=== PATIENT | female | born 1980 | race Caucasian/White ===

== ENCOUNTER 2016-04-17 15:40 | Emergency (ER) | payer OTHER ==
--- NOTE | 2016-04-17 16:45 | RAD ---
INDICATION: Short of breath COMPARISON: None TECHNIQUE: PA and lateral views were obtained. FINDINGS: Bones/Soft Tissues: There are no acute bony findings. Cardiomediastinal: The cardiomediastinal silhouette is normal. Lungs: There are no infiltrates. Pleura: There are no pleural effusions. Other: None IMPRESSION: NORMAL CHEST.
[2016-04-17] MEDS ORDERED: Morphine INJ* 4 MG/ML 1 ML SYRINGE IV ONE (18:42)
[2016-04-17] MEDS ORDERED: Ondansetron INJ* 2 MG/ML VIAL IV ONE (18:42)
[2016-04-17 19:05] LABS: Hematocrit 39 % (35-47); Hemoglobin 13.4 g/dl (12.0-16.0); Mean Corpuscular HGB Conc 34 g/dl (31-36); Mean Corpuscular Hemoglobin 31 pg (27-31); Mean Corpuscular Volume 89 fL (80-97); Mean Platelet Volume 10 um3 (7.4-10.4); Red Blood Count 4.41 10^6/ul (4.0-5.4); Red Cell Distribution Width 13 % (10.5-15); White Blood Count 13.8 10^3/ul (3.5-10.8)
[2016-04-17 19:16] LABS: Albumin 4.3 g/dL (3.2-5.2); BUN/Creatinine Ratio 15.8 (8-20); Calcium 10.4 mg/dL (8.6-10.3); EGFR African American 111.4 (>60); EGFR Non-African American 86.6 (>60); Globulin 2.6 g/dL (2-4); Potassium 3.6 mmol/L (3.5-5.0); Total Bilirubin 0.9 mg/dL (0.2-1.0); Total Protein 6.9 g/dL (6.4-8.9)
[2016-04-17 19:17] LABS: Troponin I 0.03 ng/mL (<0.04)
[2016-04-17] MEDS ORDERED: Iohexol 350* (CONTRAST) 500 ML MDV IV ONE (19:35)
--- NOTE | 2016-04-17 20:14 | RAD ---
INDICATION: Pain and swelling. COMPARISON: None TECHNIQUE: Duplex interrogation of the Lowerextremity was performed. FINDINGS: Deep veins: The common femoral, great saphenous, profunda femoris, proximal, mid, and distal deep femoral, popliteal, posterior tibial, and peroneal veins are patent. There is a recanalized mid to distal femoral vein consistent with chronic thrombosis. There is otherwise normal compressibility, augmentation, and phasic flow. Superficial veins: There are no findings of superficial thrombophlebitis. Popliteal fossa:There is no evidence of a popliteal cyst. Soft tissues:There are no soft tissue abnormalities. IMPRESSION: NO EVIDENCE OF ACUTE DEEP VENOUS THROMBOSIS. RECANALIZED MID AND DISTAL DEEP FEMORAL VEIN, UNCHANGED.
[2016-04-17 20:31] VITALS: BP 114/67
--- NOTE | 2016-04-17 20:55 | RAD ---
INDICATION: Chest pain. Short of breath. Evaluate for pulmonary embolus. COMPARISON: Chest x-ray April 17, 2016 TECHNIQUE: Axial source images were obtained from the thoracic inlet to the hemidiaphragms following administration of [address] angiographic technique was utilized. Coronal and sagittal reconstructed images were acquired. CHEST FINDINGS: Neck/thyroid: The visualized neck to include the thyroid appear normal. Chest wall: There are no acute abnormalities of the bony thorax or chest wall. There is no supraclavicular, infraclavicular, or axillary lymphadenopathy. Lungs : There are no pulmonary parenchymal masses or infiltrates. The pulmonary interstitium appears normal. There are no endobronchial lesions. Cardiomediastinal structures: There is no CT evidence of acute pulmonary embolic disease. The heart is normal in size. There is no pericardial effusion. There is no evidence of aortic aneurysm or dissection. There is no mediastinal or hilar adenopathy. The esophagus appears normal. Pleura : There are no pleural-based masses or effusions. Other: None. IMPRESSION: NO CT EVIDENCE OF ACUTE PULMONARY EMBOLIC DISEASE. LUNGS CLEAR
--- NOTE | 2016-05-02 17:42 | ED ---
Shayy Kidd Michael, scribed for Margarito Newton MD on 04/17/16 at 1757 . Shortness of Breath - HPI Summary HPI Summary: 35 y/o female comes to the ED presenting with SOB that started this afternoon. The pt reports that she was unable to catch her breath. Currently at the ED, the SOB has improved. She presents left knee pain that stared immediately one week ago after hearing a "pop" in her knee. The pt went to Urgent Care and was prescribed Prednisone. Then, she visited an Orthopedic yesterday and scheduled an MRI of her left knee. The pt also c/o left calf swelling, dizziness, weakness , and diaphoresis. She denies fever and chills. 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 - History of Current Complaint Chief Complaint: EDShortnessOfBreath Time Seen by Provider: 04/17/16 16:13 Hx Obtained From: Patient, Medical Records Onset/Duration: Sudden Onset, Lasting Hours, Resolved Timing: Constant Current Severity: Moderate Dyspnea At: Rest Aggrevating Factors: Nothing Alleviating Factors: Spontaneous Resolution Associated Signs & Symptoms: Negative - fever and chills, Diaphoresis, Dizzy, Calf Pain/Swelling - and left knee pain. weakness. - Allergy/Home Medications Allergies/Adverse Reactions: Allergies Allergy/AdvReac Type Severity Reaction Status Date / Time Aspirin Allergy Bleeding Verified 07/01/15 17:22 Home Medications: Home Medications predniSONE TAB* [Deltasone TAB*] 20 mg PO BID 04/17/16 [History Confirmed ] PMH/Surg Hx/FS Hx/Imm Hx Cardiovascular History: Reports: Hx Deep Vein Thrombosis Infectious Disease History: Yes Infectious Disease History: Denies: Traveled Outside the [place] in Last 30 Days - Family History Known Family History: Positive: None Family History: pt denies a significant FHx - Social History Occupation: Employed Full-time Lives: With Family Alcohol Use: None Substance Use Type: Reports: None Smoking Status (MU): Light Every Day Tobacco Smoker Review of Systems Positive: Skin Diaphoresis. Negative: Fever, Chills Negative: Erythema Negative: Sore Throat Negative: Chest Pain Positive: Shortness Of Breath. Negative: Cough Negative: Abdominal Pain, Vomiting, Nausea Negative: dysuria, hematuria Positive: Edema - left calf, Other - left knee pain. Negative: Rash Neurological: Other - dizziness Positive: Weakness All Other Systems Reviewed And Are Negative: Yes Physical Exam - Summary Physical Exam Summary: Constitutional: Well-developed, Well-nourished, Alert. (-) Distressed Skin: Warm, Dry HENT: Normocephalic; Atraumatic Eyes: Conjunctiva normal Neck: Musculoskeletal ROM normal neck. (-) JVD, (-) Stridor, (-) Tracheal deviation Cardio: Rhythm regular, rate normal, Heart sounds normal; Intact distal pulses; The pedal pulses are 2+ and symmetric. Radial pulses are 2+ and symmetric. ~(-) Murmur Pulmonary/Chest wall: Effort normal. (-) Respiratory distress, (-) Wheezes, (-) Rales Abd: Soft, (-) Tenderness, ~(-) Distension, (-) Guarding, (-) Rebound Musculoskeletal: (-) Edema. Left calf is tender and warm to the touch. Lymph: (-) Cervical adenopathy Neuro: Alert, Oriented x3 Psych: Mood and affect Normal Triage Information Reviewed: Yes Vital Signs On Initial Exam: Initial Vitals Temp Pulse Resp BP Pulse Ox 99.2 F 62 20 111/75 100 04/17/16 15:46 04/17/16 15:46 04/17/16 15:46 04/17/16 15:46 04/17/16 15:46 Vital Signs Reviewed: Yes - [place] Coma Scale Coma Scale Total: 15 Diagnostics - Vital Signs Vital Signs Temp Pulse Resp BP Pulse Ox 04/17/16 15:46 99.2 F 62 20 111/75 100 - Laboratory Lab Results: Lab Results 04/17/16 Range/Units 17:00 D-Dimer, Quantitative < 200 (Less Than 230) ng/mL Result Diagrams: 04/17/16 17:00 04/17/16 17:00 Lab Statement: Any lab studies that have been ordered have been reviewed, and results considered in the medical decision making process. - Radiology CXR Xray Interpretation: No Acute Changes Radiology Interpretation Completed By: Radiologist - CT CTA Chest/Thorax CT Interpretation: No Acute Changes - NO CT EVIDENCE OF ACUTE PULMONARY EMBOLIC DISEASE. LUNGS CLEAR CT Interpretation Completed By: Radiologist - EKG EK EKG Rhythm: Sinus Rhythm - 62 bpm EKG Interpretation: not STEMI. No ectopy EK Cardiac Rate: Bradycardia - 47 bpm EKG Interpretation: no STEMI - Additional Comments Diagnostic Additional Comments: Venous Doppler Study: Radiologist- NO EVIDENCE OF ACUTE DEEP VENOUS THROMBOSIS. RECANALIZED MID AND DISTAL DEEP FEMORAL VEIN, UNCHANGED. Course/Dx - Course Course Of Treatment: Second Trop was recommened and pt refused. She was advised to taper off her steriods due to the fact that they can cause some of these symptoms. She is leaving AMA. - Diagnoses Provider Diagnoses: EKG abnormality Discharge - Discharge Plan Condition: Stable Disposition: AGAINST MEDICAL ADVICE Discharge Disposition Comment: pt refused second Trop and is leaving AMA Referrals: Loren Shankar MD [Primary Care Provider] - The documentation as recorded by the Shayy granda Michael accurately reflects the service I personally performed and the decisions made by me, Margarito Newton MD.
== END 2016-04-17 23:25 | disposition left against medical advice (07) ==
LOC: ED 15:40
DX: R94.31 Abnormal electrocardiogram [ECG] [EKG] (principal); R06.02 Shortness of breath; M25.562 Pain in left knee; R61 Generalized hyperhidrosis; F17.210 Nicotine dependence, cigarettes, uncomplicated; R60.0 Localized edema; R53.1 Weakness
CPT/HCPCS: 36415; 71020; 71275; 80053; 84484; 85027; 85379; 93005; 96374; 96375; 99283; J2270; J2405; Q9967